=== PATIENT | female | born 1955 | race Caucasian/White ===

== ENCOUNTER → 2017-07-16 10:57 | Outpatient (REF) | payer MEDICAID, SELFPAY ==
[2017-07-17 20:22] LABS: Amphetamine/Metha Screen,Urine Negative ng/mL (<1000); Barbiturates Screen,Urine Negative ng/mL (<200); Benzodiazepines Screen,Urine Positive ng/mL (200); Cannabinoid Screen,Urine Negative ng/mL (<50); Cocaine Screen,Urine Negative ng/g (<300); Methadone Screen,Urine Negative ng/mL (<300); Opiate Screen,Urine Negative ng/mL (<300); Phencyclidine Screen,Urine Negative ng/mL (<25)
== END ==
LOC: LAB 10:57
PROVIDERS: Visit Provider Nurse Practitioner Family
DX: Z79.899 Other long term (current) drug therapy (principal)
CPT/HCPCS: 80305

== ENCOUNTER → 2017-07-26 11:59 | Outpatient (CLI) | payer MEDICAID, SELFPAY ==
--- NOTE | 2017-07-26 11:58 | XR_ITS ---
XR hip RT 2-3V w/pelvis HISTORY: Right hip pain ITS.REASON: hip pain ORDERING PHYSICIAN: Beau Johns PATIENT AGE: 62 years COMPARISON: None FINDINGS: No obvious fracture or dislocation. There are severe osteoarthritic changes of both hips with loss of joint space superiorly, sclerosis, osteophyte formation, and subcortical cystic changes. There is mild flattening of the femoral heads bilaterally consistent with dysplastic changes from the severe osteoarthritis. A rounded density is noted overlying the right hip may be due to an ostomy bag. Please correlate clinically. Sutures are present in the pelvis. 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
== END ==
PROVIDERS: PCP Emergency Medicine; Visit Provider Emergency Medicine
DX: M25.551 Pain in right hip (principal)
CPT/HCPCS: 73502

== ENCOUNTER → 2017-08-25 11:33 | Outpatient (CLI) | payer MEDICAID, SELFPAY | PROVIDERS: Visit Provider Emergency Medicine | DX: M25.551 Pain in right hip (principal); M25.552 Pain in left hip ==

== ENCOUNTER → 2018-12-29 17:59 | Outpatient (CLI) | payer OTHER, SELFPAY | PROVIDERS: Visit Provider Physician Assistant | DX: N39.0 Urinary tract infection, site not specified (principal) | CPT/HCPCS: 87086 ==

== ENCOUNTER → 2019-05-05 11:08 | Outpatient (POV) | payer OTHER, SELFPAY ==
[2019-05-05 11:43] VITALS: BP 119/66; PULSE 66; RESP 18; O2SAT 99; BMI 83.2
--- NOTE | 2019-05-05 13:00 | [facility].PMCON ---
Assessment and Plan (1) Low back pain Current visit: Yes Status: Chronic Category: Medical Code(s): M54.5 - Low back pain (2) Lumbar radiculopathy Current visit: Yes Status: Chronic Category: Medical Code(s): M54.16 - Radiculopathy, lumbar region (3) Sacroiliitis Current visit: Yes Status: Chronic Category: Medical Code(s): M46.1 - Sacroiliitis, not elsewhere classified - Assessment and plan all Dx Assessment and Plan for all problems:: Given her symptoms and positive Eugenie, distraction, and Meseret's test, I do think she would benefit from a right SI joint injection. She also has notable point tenderness over her right SI joint. The patient is morbidly obese. I do have a concern with locating her SI joint especially with her inability to get on the exam table. Patient was unable to determine her actual weight. We will, however, attempt the right SI joint injection. We will see her back following her injection to reassess her symptoms. She has been instructed to contact the clinic if she has any concerns before her next appointment. HPI - Data of Consult Consult date: 05/05/19 Requesting Physician: Farnaz Fleming APRN Primary Care Provider: Murphy Collado MD - Consult Narrative Reason for consult: Low back pain, right leg pain History of present illness: Ms. Najera is a 63 year old morbidly obese female who presents today for consultation for low back pain with radiation into her right leg. Patient says that she has had ongoing low back pain for many years. She has attributed her pain to her obesity, however, she is now developing severe pain into her right leg. She says the pain is worse when she is standing. Patient says she does walk with a walker at home. She is in a wheelchair today during the assessment. She says that she does have difficulty with ambulation secondary to the pain. She says she does get relief when she is sitting. She says the pain radiates into her thigh and calf area. She rates her pain an 8 out of 10 today. Patient says that she has tried oral medication management and has gotten little to no relief. She is limited in mobility and has had a difficult time with a home stretching program. She does take anti-inflammatories [id number]. CC: Farnaz Fleming APRN [facility] History I have reviewed the patient's past medical history: Yes Medical History: Reports:: Anxiety, Atrial Fibrillation, Depression, Hyperlipidemia, Hypertension *Have you ever received a pneumonia vaccine?: Yes *Have you received a flu vaccine this season?: Yes Other Medical History: Reports: Arthritis, Other Other Surgeries: Yes: Other Amputation: No Fractures: No - *Social History Smoking Status: Never smoker Alcohol Intake: never Substance Use Type: denies use *Occupational Status:: other Housing: house Household Members: family *Travel in the last 8 weeks: None - Psychiatric History Pschychiatric History:: Reports:: Anxiety, Depression Family Hx:: Cancer Review of Systems - Review of Systems Review of Systems General: No recent weight changes, no fever, no sleep disturbances Respiratory: No cough, no shortness of air, no recurring pulmonary infections Cardiovascular/peripheral vascular: No chest pain, no palpitations, no edema, no shortness of breath Gastrointestinal: No new onset incontinence, normal bowel movements reported Genitourinary: No new onset incontinence Musculoskeletal: Low back pain, right leg pain Psychiatric: Normal mood/affect Neurological: [Denies weakness in extremities], [denies balance issues] Meds Home Medications Medication Instructions Recorded Confirmed Type alprazolam 0.5 mg tablet 0.5 mg PO BID PRN 30 Days #60 tab 04/14/19 04/14/19 Rx aspirin 81 mg tablet,delayed 81 mg PO DAILY 04/14/19 04/14/19 History release diltiazem CD 240 mg 240 mg PO DAILY 04/14/19 04/14/19 History capsule,extended release 24 hr hydroxyz
--- NOTE | 2019-05-05 13:03 | P.CONS_ITS ---
Assessment and Plan (1) Low back pain Current visit: Yes Status: Chronic Category: Medical Code(s): M54.5 - Low back pain (2) Lumbar radiculopathy Current visit: Yes Status: Chronic Category: Medical Code(s): M54.16 - Radiculopathy, lumbar region (3) Sacroiliitis Current visit: Yes Status: Chronic Category: Medical Code(s): M46.1 - Sacroiliitis, not elsewhere classified - Assessment and plan all Dx Assessment and Plan for all problems:: Given her symptoms and positive Eugenie, distraction, and Meseret's test, I do think she would benefit from a right SI joint injection. She also has notable point tenderness over her right SI joint. The patient is morbidly obese. I do have a concern with locating her SI joint especially with her inability to get on the exam table. Patient was unable to determine her actual weight. We will, however, attempt the right SI joint injection. We will see her back following her injection to reassess her symptoms. She has been instructed to contact the clinic if she has any concerns before her next appointment. HPI - Data of Consult Consult date: 05/05/19 Requesting Physician: Farnaz Fleming APRN Primary Care Provider: Murphy Collado MD - Consult Narrative Reason for consult: Low back pain, right leg pain History of present illness: Ms. Najera is a 63 year old morbidly obese female who presents today for consultation for low back pain with radiation into her right leg. Patient says that she has had ongoing low back pain for many years. She has attributed her pain to her obesity, however, she is now developing severe pain into her right leg. She says the pain is worse when she is standing. Patient says she does walk with a walker at home. She is in a wheelchair today during the assessment. She says that she does have difficulty with ambulation secondary to the pain. She says she does get relief when she is sitting. She says the pain radiates into her thigh and calf area. She rates her pain an 8 out of 10 today. Patient says that she has tried oral medication management and has gotten little to no relief. She is limited in mobility and has had a difficult time with a home stretching program. She does take anti-inflammatories [id number]. CC: Farnaz Fleming APRN [facility] History I have reviewed the patient's past medical history: Yes Medical History: Reports:: Anxiety, Atrial Fibrillation, Depression, Hyperlipidemia, Hypertension *Have you ever received a pneumonia vaccine?: Yes *Have you received a flu vaccine this season?: Yes Other Medical History: Reports: Arthritis, Other Other Surgeries: Yes: Other Amputation: No Fractures: No - *Social History Smoking Status: Never smoker Alcohol Intake: never Substance Use Type: denies use *Occupational Status:: other Housing: house Household Members: family *Travel in the last 8 weeks: None - Psychiatric History Pschychiatric History:: Reports:: Anxiety, Depression Family Hx:: Cancer Review of Systems - Review of Systems Review of Systems General: No recent weight changes, no fever, no sleep disturbances Respiratory: No cough, no shortness of air, no recurring pulmonary infections Cardiovascular/peripheral vascular: No chest pain, no palpitations, no edema, no shortness of breath Gastrointestinal: No new onset incontinence, normal bowel movements reported Genitourinary: No new onset incontinence Musculoskeletal: Low back pain, right leg pain Psychiatric: Normal mood/affect Neurological: [Denies weakness in
== END ==
PROVIDERS: PCP Emergency Medicine; Visit Provider Clinical Nurse Specialist Family Health
DX: M54.5 Low back pain (principal); M54.16 Radiculopathy, lumbar region; M46.1 Sacroiliitis, not elsewhere classified
CPT/HCPCS: 99202

== ENCOUNTER 2019-05-19 14:15 | Outpatient (RCR) | payer OTHER, SELFPAY | END 2019-05-19 14:20 | disposition home or self-care (01) | LOC: PT 14:15 | PROVIDERS: Visit Provider Nurse Practitioner Family | DX: M25.552 Pain in left hip (principal); M25.551 Pain in right hip; M54.9 Dorsalgia, unspecified | CPT/HCPCS: 97542 ==

== ENCOUNTER → 2020-03-08 18:33 | Outpatient (CLI) | payer MEDICARE, SELFPAY ==
[2020-03-08 18:57] LABS: Basophils % 0.4 % (0.1-2.0); Eosinophils # 0.3 K/mm3 (0.0-0.4); Eosinophils % 3.1 % (0.1-12.0); Hemoglobin 12.4 g/dL (12.2-16.2); Lymphocytes # 1.1 K/mm3 (0.7-4.5); Lymphocytes % 12.7 % (10-50); Mean Corpuscular HGB Conc 33.6 g/dL (31.8-35.4); Mean Corpuscular Hemoglobin 28.7 pg (27.0-31.2); Mean Corpuscular Volume 85.5 fl (81-99); Mean Platelet Volume 7.6 fl (7.4-10.4); Monocytes # 0.6 K/mm3 (0.1-1.0); Neutrophils # 6.7 K/mm3 (1.8-7.8); Neutrophils % 76.8 % (37.0-80.0); Platelet Count 357 K/mm3 (142-424); Red Blood Count 4.33 M/mm3 (4.20-5.40); Red Cell Distribution Width 14.1 % (11.5-17.5); White Blood Count 8.7 K/mm3 (4.8-10.8)
[2020-03-08 19:04] LABS: Alanine Aminotransferase 15 U/L (12-78); Albumin Level 4.2 g/dl (3.5-5.0); Albumin/Globulin Ratio 1.1 (1.1-1.8); Alkaline Phosphatase 98 U/L (38-126); Anion Gap 14.7 mEq/L (5-15); Aspartate Amino Transferase 23 U/L (14-36); Bilirubin,Total 0.5 mg/dl (0.2-1.3); Blood Urea Nitrogen 23 mg/dl (7-17); Calcium 10.3 mg/dl (8.4-10.2); Carbon Dioxide 24 mmol/L (22.0-30.0); Chloride 106 mmol/L (98-107); Chol/HDL Ratio 3.1 (1-3.5); Cholesterol 215 mg/dl (140-200); Estimated Glomerular Filt Rate 50 ml/min (>60); GFR (African American) 61 ML/MIN (>60); Glucose 155 mg/dl (74-100); HDL Cholesterol 69 mg/dl (40-60); Potassium 4.7 mmoL/L (3.5-5.1); Sodium 140 mmol/L (136-145); Total Protein,Serum 8.2 g/dl (6.3-8.2); Triglycerides 183 mg/dl (30-150); VLDL Cholesterol 37 mg/dL (0-40)
[2020-03-08 19:15] LABS: Direct LDL Cholesterol 101.65 mg/dL (100-129)
[2020-03-08 19:24] LABS: 25-OH Vitamin D, Total 22.4 ng/mL (30-100); T4 (Thyroxine) 6.5 ug/dl (5.53-11.0)
[2020-03-08 19:38] LABS: Thyroid Stimulating Hormone 2.84 uIU/mL (0.465-4.68)
== END ==
PROVIDERS: Visit Provider Nurse Practitioner Family
DX: E66.9 Obesity, unspecified (principal); M54.5 Low back pain; N28.9 Disorder of kidney and ureter, unspecified; R53.83 Other fatigue; E55.9 Vitamin D deficiency, unspecified
CPT/HCPCS: 80053; 80061; 82306; 84436; 84443; 85025